=== PATIENT | female | born 1995 | race Caucasian/White ===

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

== ENCOUNTER → 2017-01-30 | Outpatient (CLI) | payer BC ==
[~2017-01-30] MED LIST: GADOBUTROL 10 ML VIAL IVP ONE
== END ==
LOC: FIMAGING 07:59
PROVIDERS: ATTEND Physician Assistant Medical
DX: G43.909 Migraine, unspecified, not intractable, without status migrainosus (principal)
CPT/HCPCS: A9585

== ENCOUNTER → 2017-02-01 | Outpatient (CLI) | payer BC ==
--- NOTE | 2017-02-02 15:51 | CPEEG ---
[f rep st] ELECTROENCEPHALOGRAM 24-HOUR AMBULATORY EEG DATES OF STUDY: February 01, 2017, to February 02, 2017. INTERPRETATION: This 24-hour ambulatory EEG recording is normal. There were no potentially epileptogenic abnormalities present on the awake or sleep recordings. During the ambulatory recording, the patient reported symptoms of lightheadedness and dizziness. There was no abnormal EEG correlate with these symptoms consistent with nonepileptic symptomatology. REPORT: This 24-hour ambulatory EEG recording was performed from February 01, 2017, to February 02, 2017. The background activity contained 10 Hz posterior dominant rhythm. The background activity was normal and symmetric. There was no abnormal activation at rest. The patient became drowsy and fell into sustained sleep during the study. There was no abnormal activation during drowsiness, sleep, or during times of arousal. The patient provided a diary and reported feeling "lightheaded and dizzy" that she states "gradually happened throughout the day, intermittently." She recorded this on February 02, 2017, from 12:08 p.m. to 1:00 p.m. The EEG during this period of time showed no clear cut abnormality. It was intermittently obscured by electrode artifact. The EEG did have intermittent electrode artifact throughout the study. Despite this technical difficulty, there were enough portions of the EEG throughout that duration of symptoms to assess normal background rhythms of wakefulness during the reported symptoms. /[id number]/MODL MTDD
== END ==
LOC: FCPNEURO 14:27
PROVIDERS: ATTEND Physician Assistant Medical
DX: R42 Dizziness and giddiness (principal)